=== PATIENT | male | born 1990 | race Caucasian/White ===

== ENCOUNTER 2019-08-23 10:42 | Inpatient (IN) | payer OTHER ==
--- NOTE | 2019-08-23 11:03 | BHS.RME ---
Substance Use & Tx History - Substance Use History Alcohol Substance amount: 2 six packs beer Frequency of use: Daily Substance route: Oral Date of Last Use: 08/23/19 (4 am) Nicotine Substance amount: 1 cigg Frequency of use: Less than 3 times per week Substance route: Smoking Date of Last Use: 08/21/19 Cocaine (Crack) Substance amount: 5 grams Frequency of use: Daily Substance route: Inhalation (ex: sniffing or snorting) Date of Last Use: 08/23/19 (4 am) Cannabis Substance amount: 10-12 Frequency of use: Daily Substance route: Smoking Date of Last Use: 08/23/19 Physical/Psych/Mental Status - Behavior General Behavior: Increased activity (restlessness, agitation) Eye Contact: Normal - Cooperativeness Cooperativeness: Reluctant - Thinking Thought Processes: Tight, Logical, Goal Directed Thought content: Future oriented - Physical Health Problems Is patient presently having any pain?: No Does patient presently have any injuries (include location): No Does patient currently have a fever: No Is patient : No CIWA Nausea/Vomitin-Mild Nausea/No Vomiting Muscle Tremors: 1-None Visible, but [place] Anxiety: 3 Agitation: 3 Paroxysmal Sweats: 1-Minimal Palms Moist Orientation: 0-Oriented Tacttile Disturbances: 0-None Auditory Disturbances: 0-None Visual Disturbances: 1-Very Mild Sensitivity Headache: 0-None Present (drank earlier today at 4am) CIWA-Ar Total Score: 10
[2019-08-23 11:51] VITALS: BMI 25.0
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
[2019-08-23] MEDS ORDERED: hydrOXYzine PAMOATE 25 MG CAPSULE (FP) PO PRN (12:09)
[2019-08-23] MEDS ORDERED: MAGNESIUM CITRATE 300 ML BOTTLE PO PRN (12:09)
[2019-08-23] MEDS ORDERED: BISMUTH SUBSALICYLATE 524 MG/30 ML UD PO PRN (12:09)
[2019-08-23] MEDS ORDERED: MAG HYDROX/AL HYDROX/SIMETH 30 ML UNIT-DOSE CUP PO PRN (12:09)
[2019-08-23] MEDS ORDERED: MAGNESIUM HYDROX 2400MG/30ML ORAL SUSPENSION 30 ML CUP PO PRN (12:09)
[2019-08-23] MEDS ORDERED: MENTHOL/PHENOL 1 EACH UD MM PRN (12:09)
[2019-08-23] MEDS ORDERED: chlordiazePOXIDE HCL 25 MG CAPSULE PO PRN (12:09)
[2019-08-23] MEDS ORDERED: ACETAMINOPHEN 325 MG TABLET (FP) PO PRN ×2 (12:09)
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
[2019-08-23 17:34] LABS: HEMATOCRIT 41.7 % (35.4-49); MCH 30.1 pg (25.7-33.7); MCHC 33.6 g/dl (32.0-35.9); MEAN CELL VOLUME 89.5 fl (80-96); MEAN PLT VOLUME 9.1 fl (7.5-11.1); PLATELET COUNT 299 K/MM3 (134-434); RBC 4.66 M/mm3 (4.00-5.60); RDW 14.2 % (11.9-15.9); WHITE BLOOD COUNT 9.2 K/mm3 (4.0-10.0)
[2019-08-23] MEDS: chlordiazePOXIDE HCL 25 MG CAPSULE PO SCH ×2 (17:39→22:51)
[2019-08-23 17:51] LABS: ALBUMIN 4.7 g/dl (3.4-5.0); BILIRUBIN,TOTAL 0.7 mg/dL (0.2-1); BLOOD UREA NITROGEN 12.2 mg/dL (7-18); CALCIUM 9.3 mg/dL (8.5-10.1); CREATININE 0.9 mg/dL (0.55-1.3); POTASSIUM 3.8 mmol/L (3.5-5.1); TOT PROT 8.1 g/dl (6.4-8.2)
[2019-08-23] MEDS: THIAMINE HCL 100 MG TABLET (FP) PO SCH (22:51)
[2019-08-23] MEDS: MELATONIN 5 MG TABLETS PO PRN (23:19)
[2019-08-24] MEDS: chlordiazePOXIDE HCL 25 MG CAPSULE PO SCH ×3 (07:14→17:39)
[2019-08-24 09:13] LABS: RPR REACTIVE 1:2 (NONREACTIVE)
[2019-08-24] MEDS: PRENATAL VITAMINS W/ FOLIC ACID TABLET (FP) PO SCH (10:26)
[2019-08-24 11:34] LABS: TREPONEMA ANTIBODY REACTIVE (NONREACTIVE)
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
[2019-08-24] MEDS: METHOCARBAMOL 500 MG TABLET PO PRN (18:04)
[2019-08-25] MEDS: chlordiazePOXIDE HCL 25 MG CAPSULE PO SCH ×5 (00:05→22:30)
[2019-08-25] MEDS: THIAMINE HCL 100 MG TABLET (FP) PO SCH ×2 (00:05→22:30)
[2019-08-25] MEDS: PRENATAL VITAMINS W/ FOLIC ACID TABLET (FP) PO SCH (10:09)
[2019-08-25] MEDS: METHOCARBAMOL 500 MG TABLET PO PRN ×2 (10:11→18:43)
[2019-08-25] MEDS ORDERED: PENICILLIN G BENZATHINE 2,400,000 UNIT/4 ML PFS IM ONE (11:00)
--- NOTE | 2019-08-25 11:59 | EKG ---
Test Reason : Blood Pressure : / mmHG Vent. Rate : 076 BPM Atrial Rate : 076 BPM P-R Int : 134 ms QRS Dur : 092 ms QT Int : 376 ms P-R-T Axes : 055 056 038 degrees QTc Int : 423 ms NORMAL SINUS RHYTHM WITH SINUS ARRHYTHMIA MODERATE VOLTAGE CRITERIA FOR LVH, MAY BE NORMAL VARIANT NO PREVIOUS ECGS AVAILABLE Confirmed by LES VILLALTA MD ([id number]) on 08/25/2019 11:58:57 AM Referred By: Confirmed By:LES VILLALTA MD
--- NOTE | 2019-08-25 14:18 | PN ---
S CIWA - CIWA Score Nausea/Vomitin-Mild Nausea/No Vomiting Muscle Tremors: 2 Anxiety: 2 Agitation: 2 Paroxysmal Sweats: 2 Orientation: 0-Oriented Tacttile Disturbances: 0-None Auditory Disturbances: 0-None Visual Disturbances: 0-None Headache: 0-None Present CIWA-Ar Total Score: 9 BHS Progress Note (SOAP) Subjective: Feels ok Objective: 08/25/19 14:16 Last Vital Signs Temp Pulse Resp BP Pulse Ox 97.6 F 58 L 18 102/74 08/25/19 08:36 08/25/19 08:36 08/25/19 08:36 08/25/19 08:36 Laboratory Tests 08/23/19 08/23/19 08/23/19 12:30 12:30 12:30 WBC 9.2 RBC 4.66 Hgb 14.0 Hct 41.7 MCV 89.5 MCH 30.1 MCHC 33.6 RDW 14.2 Plt Count 299 MPV 9.1 Sodium 137 Potassium 3.8 Chloride 102 Carbon Dioxide 28 Anion Gap 6 L BUN 12.2 Creatinine 0.9 Est GFR (CKD-EPI)AfAm 134.24 Est GFR (CKD-EPI)NonAf 115.82 Random Glucose 77 Calcium 9.3 Total Bilirubin 0.7 AST 19 ALT 29 Alkaline Phosphatase 62 Total Protein 8.1 Albumin 4.7 RPR Titer T.pallidum Ab (MHA) HIV 1&2 Antibody Screen Negative HIV P24 Antigen Negative 08/23/19 12:30 WBC RBC Hgb Hct MCV MCH MCHC RDW Plt Count MPV Sodium Potassium Chloride Carbon Dioxide Anion Gap BUN Creatinine Est GFR (CKD-EPI)AfAm Est GFR (CKD-EPI)NonAf Random Glucose Calcium Total Bilirubin AST ALT Alkaline Phosphatase Total Protein Albumin RPR Titer Reactive 1:2 H T.pallidum Ab (MHA) Reactive HIV 1&2 Antibody Screen HIV P24 Antigen Labs reviewed Assessment: 08/25/19 14:17 Withdrawal sxs Plan: Continue detox Encouraged PO water intake
[2019-08-25] MEDS: IBUPROFEN 400 MG TABLET (FP) PO PRN (21:02)
[2019-08-25] MEDS: MELATONIN 5 MG TABLETS PO PRN (22:30)
[2019-08-26] MEDS ORDERED: chlordiazePOXIDE HCL 10 MG CAPSULE PO PRN
[2019-08-26] MEDS: chlordiazePOXIDE HCL 10 MG CAPSULE PO SCH ×4 (06:11→22:12)
--- NOTE | 2019-08-26 09:57 | PN ---
S CIWA - CIWA Score Nausea/Vomitin-Mild Nausea/No Vomiting Muscle Tremors: 1-None Visible, but [place] Anxiety: 2 Agitation: 2 Paroxysmal Sweats: No Perspiration Orientation: 0-Oriented Tacttile Disturbances: 1-Very Mild Itch/Numbness Auditory Disturbances: 0-None Visual Disturbances: 0-None Headache: 1-Very Mild CIWA-Ar Total Score: 8 BHS Progress Note (SOAP) Subjective: alert,irritable,anxious,interrupted sleep,aching pain Objective: 08/26/19 09:56 Vital Signs Temperature 97.2 F L 08/26/19 05:35 Pulse Rate 68 08/26/19 05:35 Respiratory Rate 18 08/26/19 05:35 Blood Pressure 99/61 08/26/19 05:35 O2 Sat by Pulse Oximetry (%) Assessment: 08/26/19 09:56 withdrawal symptom Plan: continue detox librium regimen
[2019-08-26] MEDS: PRENATAL VITAMINS W/ FOLIC ACID TABLET (FP) PO SCH (10:21)
[2019-08-26] MEDS: METHOCARBAMOL 500 MG TABLET PO PRN ×3 (10:22→23:08)
[2019-08-26] MEDS: IBUPROFEN 400 MG TABLET (FP) PO PRN (20:00)
[2019-08-26] MEDS: THIAMINE HCL 100 MG TABLET (FP) PO SCH (22:12)
[2019-08-26] MEDS: MELATONIN 5 MG TABLETS PO PRN (22:12)
[2019-08-27] MEDS ORDERED: chlordiazePOXIDE HCL 10 MG CAPSULE PO SCH (05:00)
[2019-08-27] MEDS: METHOCARBAMOL 500 MG TABLET PO PRN (05:48)
[2019-08-27 07:11] VITALS: BP 109/65; PULSE 63; TEMP 97.7
--- NOTE | 2019-08-27 08:59 | PN ---
[facility] CIWA - CIWA Score Nausea/Vomitin-No Nausea/No Vomiting Muscle Tremors: 1-None Visible, but [place] Anxiety: 0-No Anxiety, at Ease Agitation: 0-Normal Activity Paroxysmal Sweats: No Perspiration Orientation: 0-Oriented Tacttile Disturbances: 0-None Auditory Disturbances: 0-None Visual Disturbances: 0-None Headache: 0-None Present CIWA-Ar Total Score: 1 S Progress Note (SOAP) Subjective: alert,no complaint Objective: 08/27/19 08:58 Vital Signs Temperature 97.7 F 08/27/19 05:44 Pulse Rate 63 08/27/19 05:44 Respiratory Rate 16 08/27/19 06:53 Blood Pressure 109/65 08/27/19 05:44 O2 Sat by Pulse Oximetry (%) Assessment: 08/27/19 08:58 no withdrawal symptom Plan: discharge today,follow up with after care program as arrangement
--- NOTE | 2019-08-27 09:00 | DS ---
[facility] Detox Discharge Summary Admission Date: 08/23/19 Discharge Date: 08/27/19 - History Present History: Alcohol Dependence, Cannabis Dependence, Cocaine Dependence Additional Comments: alert,oriented x 3 ambulation on the unit heart normal heart sound,s1s2 lung clear bilaterally no abdominal pain stable for discharge has history of syphilis in 2011 seen and treated by PMD received penicillin injection received bicillin 2.4 million unit on 08/24/2019 he will go to see his PMD upon discharge for evaluation and follow up treatment, patient understood advise precaution before sexual relation time spending on discharge 35 mins follw up with outpatient program as arrangement Pertinent Past History: traumatic brain injury - Physical Exam Results Vital Signs: Vital Signs Temperature 97.7 F 08/27/19 05:44 Pulse Rate 63 08/27/19 05:44 Respiratory Rate 16 08/27/19 06:53 Blood Pressure 109/65 08/27/19 05:44 O2 Sat by Pulse Oximetry (%) Pertinent Admission Physical Exam Findings: withdrawal signs and symptom Laboratory Last Values WBC 9.2 K/mm3 (4.0-10.0) 08/23/19 12:30 RBC 4.66 M/mm3 (4.00-5.60) 08/23/19 12:30 Hgb 14.0 GM/dL (11.7-16.9) 08/23/19 12:30 Hct 41.7 % (35.4-49) 08/23/19 12:30 MCV 89.5 fl (80-96) 08/23/19 12:30 MCH 30.1 pg (25.7-33.7) 08/23/19 12:30 MCHC 33.6 g/dl (32.0-35.9) 08/23/19 12:30 RDW 14.2 % (11.9-15.9) 08/23/19 12:30 Plt Count 299 K/MM3 (134-434) 08/23/19 12:30 MPV 9.1 fl (7.5-11.1) 08/23/19 12:30 Sodium 137 mmol/L (136-145) 08/23/19 12:30 Potassium 3.8 mmol/L (3.5-5.1) 08/23/19 12:30 Chloride 102 mmol/L (98-107) 08/23/19 12:30 Carbon Dioxide 28 mmol/L (21-32) 08/23/19 12:30 Anion Gap 6 MMOL/L (8-16) L 08/23/19 12:30 BUN 12.2 mg/dL (7-18) 08/23/19 12:30 Creatinine 0.9 mg/dL (0.55-1.3) 08/23/19 12:30 Est GFR (CKD-EPI)AfAm 134.24 08/23/19 12:30 Est GFR (CKD-EPI)NonAf 115.82 08/23/19 12:30 Random Glucose 77 mg/dL (74-106) 08/23/19 12:30 Calcium 9.3 mg/dL (8.5-10.1) 08/23/19 12:30 Total Bilirubin 0.7 mg/dL (0.2-1) 08/23/19 12:30 AST 19 U/L (15-37) 08/23/19 12:30 ALT 29 U/L (13-61) 08/23/19 12:30 Alkaline Phosphatase 62 U/L (45-117) 08/23/19 12:30 Total Protein 8.1 g/dl (6.4-8.2) 08/23/19 12:30 Albumin 4.7 g/dl (3.4-5.0) 08/23/19 12:30 RPR Titer Reactive 1:2 (NONREACTIVE) H 08/23/19 12:30 T.pallidum Ab (MHA) Reactive (NONREACTIVE) 08/23/19 12:30 HIV 1&2 Antibody Screen Negative 08/23/19 12:30 HIV P24 Antigen Negative 08/23/19 12:30 - Treatment Hospital Course: Detox Protocol Followed, Detoxed Safely, Responded well, Discharged Condition Good Patient has Accepted a Rehab Referral to: declined - Medication Discharge Medications: Ambulatory Orders NK [No Known Home Medication] 08/23/19 - Diagnosis (1) Cannabis dependence Current Visit: Yes Status: Acute (2) Cocaine dependence Current Visit: Yes Status: Acute (3) Positive RPR test Current Visit: Yes Status: Acute (4) Uncomplicated alcohol dependence Current Visit: Yes Status: Acute (5) TBI (traumatic brain injury) Current Visit: Yes Status: Resolved - AMA Did Patient Leave Against Medical Advice: No
[2019-08-27] MEDS: IBUPROFEN 400 MG TABLET (FP) PO PRN (09:50)
[2019-08-27] MEDS: PRENATAL VITAMINS W/ FOLIC ACID TABLET (FP) PO SCH (09:51)
[2019-08-28] MEDS ORDERED: chlordiazePOXIDE HCL 10 MG CAPSULE PO ONE (05:00)
== END 2019-08-27 10:00 | disposition home or self-care (01) | DRG 774 ==
LOC: YASAS 10:42 → Y6N 12:39
PROVIDERS: ADMIT Allergy & Immunology; ATTEND Allergy & Immunology
PROC: HZ2ZZZZ Detoxification Services for Substance Abuse Treatment (ICD-10-PCS; principal; 2019-08-23)
DX: F10.230 Alcohol dependence with withdrawal, uncomplicated (principal); F14.20 Cocaine dependence, uncomplicated; F12.20 Cannabis dependence, uncomplicated; F19.24 Other psychoactive substance dependence with psychoactive substance-induced mood disorder; F19.282 Other psychoactive substance dependence with psychoactive substance-induced sleep disorder; Z72.0 Tobacco use; R76.11 Nonspecific reaction to tuberculin skin test without active tuberculosis; Z87.820 Personal history of traumatic brain injury
CPT/HCPCS: 36415; 80053; 85027; 86593; 86780; 87389; 93005; 93010